=== PATIENT | female | born 1935 | race Caucasian/White ===

== ENCOUNTER 2018-01-21 09:53 | Emergency (ER) | payer OTHER ==
[~2018-01-21] VITALS: Ht 162.6 cm; Wt 59.0 kg
[2018-01-21 10:05] VITALS: BP_SYST 166
[2018-01-21] MEDS ORDERED: LOPERAMIDE HCL 2 MG CAPSULE PO ONE (10:45)
[2018-01-21] MEDS ORDERED: ONDANSETRON 4 MG ODT TAB PO ONE (12:30)
[2018-01-21 12:45] VITALS: BP_SYST 166
== END 2018-01-21 12:45 | disposition home or self-care (01) ==
LOC: SED 09:53
DX: R11.2 Nausea with vomiting, unspecified (principal); R19.7 Diarrhea, unspecified; F17.210 Nicotine dependence, cigarettes, uncomplicated; I10 Essential (primary) hypertension; Z71.6 Tobacco abuse counseling
CPT/HCPCS: 87045; 87230; 99284; Q0162